=== PATIENT | female | born 1980 | race Caucasian/White ===

== ENCOUNTER 2019-02-27 | Emergency (ER) | payer SELFPAY ==
[2019-02-27 03:04] LABS: URINE BILIRUBIN - DIPSTICK NEGATIVE (NEGATIVE); URINE BLOOD DIPSTICK NEGATIVE (NEGATIVE); URINE CLARITY CLEAR; URINE COLOR YELLOW; URINE GLUCOSE - DIPSTICK NEGATIVE (NEGATIVE); URINE KETONE NEGATIVE (NEGATIVE); URINE LEUK ESTERASE TRACE (Negative); URINE NITRITE - DIPSTICK POSITIVE (Negative); URINE UROBILINOGEN - DIPSTICK 0.2 E.U./dL (0.2)
[2019-02-27 03:09] LABS: URINE PROTEIN - DIPSTICK NEGATIVE (NEG-TRACE)
[2019-02-27 03:10] LABS: URINE BACTERIA MANY hpf; URINE EPITHELIAL CELLS MANY EPI/hpf (0-FEW)
[2019-02-27] MEDS ORDERED: CIPROFLOXACN500 MG PO (03:45)
[2019-02-27] MEDS ORDERED: PYRIDIUM200 MG PO (03:45)
== END 2019-02-27 03:50 | disposition home or self-care (01) | DRG 690 ==
PROVIDERS: Emergency Medicine
DX: N39.0 Urinary tract infection, site not specified (principal)